=== PATIENT | female | born 1995 | race Caucasian/White ===

== ENCOUNTER 2018-10-23 22:00 | Inpatient (IN) ==
--- NOTE | 2018-10-23 23:10 | OB/GYN History & Physical ---
Date of Encounter: 10/23/18 Time of Encounter: 23:07 Assessment and Plan (1) 39 weeks gestation of Current visit: Yes Status: Acute Admit for IOL. Plan for cytotec. PCN for GBS ppx. Epidural if requested. Anticipate . (2) Obesity complicating in third trimester Current visit: Yes Status: Acute (3) Noncompliance Current visit: Yes Status: Acute History of Present Illness Chief complaint: IOL HPI: Ms. Verde is a 22 year old female presenting at 39w2d for IOL due to obesity and noncompliance with care. She has had 3 visits with the onset of care at 30 weeks. A positive Rubella immune Serologies negative A1C WNL, no glucola GBS positive Past Med Surg Social Fam HX - Past Medical History Source: patient Medical history: no medical history - Past Surgical History Surgical History: no surgical history - Social History Smoking Status: Never smoker Alcohol use: none Drug use: none Current living situation: Home - Independent Obstetrical History - Pregnancies : 1 Review of System OB All systems PM: reviewed and no additional remarkable complaints except as stated Exam - Constitutional Constitutional: no acute distress, obese - HEENT HEENT: Mucus Membranes Moist - Lungs Respiratory exam: CTAB - Cardiovascular Cardiovascular exam: RRR - Abdomen Abdomen: Present: gravid, non tender - Extremities Extremities exam: pedal edema (mild bilaterally, bug bites noted over entire body) - Vulva Vulva: bilateral: normal - Vagina Vagina: Present: normal moisture - Cervix Dilation: 3 (at last PN visit) - Anus/Rectum Anus/Rectum: Present: normal perianal skin Results All other labs normal.
[2018-10-23] MEDS ORDERED: Naloxone 0.4 MG/ML INJ IVP PRN (23:13)
[2018-10-23] MEDS ORDERED: *HR* Nalbuphine 10 MG/ML AMPUL IVP PRN (23:13)
[2018-10-23] MEDS ORDERED: Penicillin G Potassium 5,000,000 UNIT in 0.9 % Sodium Chloride Mini Bag 100 ML IVPB ONE (23:13)
[2018-10-23] MEDS ORDERED: Famotidine 20 MG/2 ML VIAL IVP PRN (23:13)
[2018-10-23] MEDS ORDERED: Ondansetron 4 MG/2 ML VIAL IVP PRN (23:13)
[2018-10-23] MEDS ORDERED: Metoclopramide 10 MG/2 ML VIAL IVP PRN (23:13)
[2018-10-23] MEDS ORDERED: Oxytocin 20 units/ LR 1000 mL 20 UNIT/1,000 ML BAG IVC SCH (23:15)
[2018-10-23] MEDS: miSOPROStol 25 MCG TABLET PO PRN (23:39)
[2018-10-23] MEDS: Ringers Solution, Lactated 1,000 ML IVC SCH (23:40)
[2018-10-23 23:47] LABS: Amphetamine Screen,Urine Negative ng/mL (Cutoff=1000); Barbiturate Screen,Urine Negative ng/mL (Cutoff=200); Benzodiazepines Screen,Urine Negative ng/mL (Cutoff=200); Cannabinoid Screen,Urine Negative ng/mL (Cutoff = 50); Cocaine Screen,Urine Negative ng/mL (Cutoff= 300); Opiate Screen,Urine Negative ng/mL (Cutoff=300); Phencyclidine Screen,Urine Negative ng/mL (Cutoff=25)
[2018-10-23 23:57] LABS: Basophils % 0.3 %; Eosinophils % 0.4 %; Hematocrit 30.4 % (35.3-44.9); Immature Granulocytes % 0.3 % (0-4); Lymphocytes # 2.1 K/mcL (0.6-4.6); Lymphocytes % 21.6 %; Mean Corpuscular HGB Conc 32.9 g/dL (31.6-35.5); Mean Corpuscular Hemoglobin 28.2 pg (28.0-33.3); Mean Corpuscular Volume 85.6 fL (83.0-100.0); Mean Platelet Volume 10.4 fL (9.4-12.4); Monocytes # 0.8 K/mcL (0.0-1.3); Monocytes % 7.9 %; Neutrophils # 6.8 K/mcL (1.6-8.9); Platelet Count 269 K/mcL (140-400); Red Blood Count 3.55 M/mcL (3.82-4.97); Red Cell Distribution Width 12.9 % (11.5-14.5); Segmented Neutrophils % 69.5 %; White Blood Count 9.7 K/mcL (4.3-11.1)
[2018-10-24] MEDS: Penicillin G Potassium 2,500,000 UNIT in 0.9 % Sodium Chloride 100 ML IVPB SCH ×5 (03:53→20:16)
[2018-10-24] MEDS: miSOPROStol 25 MCG TABLET PO PRN (04:18)
--- NOTE | 2018-10-24 07:12 | OB Labor Progress Note ---
Date of Encounter: 10/24/18 Time of Encounter: 07:10 Labor Progress Note - Subjective Subjective: Pt reports some pressure but no significant pain. - Vital Signs Vital Signs: VSS - Heart Tones Heart Tones: Category I - Sonterra Sonterra: irregular - Plan Plan: Plan to begin pitocin around 0800. AROM when able. Anticipate .
--- NOTE | 2018-10-24 10:21 | OB Labor Progress Note ---
Date of Encounter: 10/24/18 Time of Encounter: 10:14 Labor Progress Note - Subjective Subjective: Patient feels comfortable with contractions-states she feels just bit of tightening and no real pain or pressure - Cervix Cervix: 6-7/70/-1 - Heart Tones Heart Tones: Baseline 120 Moderate variability Accelerations present 15 x 15 No decelerations FHR category I - Nicolaus Nicolaus: Contractions every 3 minutes and palpate mild - Interventions Interventions: SVE AROM for small amount of clear fluid - Plan Physician notified: No Plan: Continue induction management Increase Pitocin per policy Frequent position changes and movement recommended Anticipate vaginal delivery
[2018-10-24] MEDS: Epidural Premix (fent/bupiv) 110 ML EP SCH ×2 (11:35→18:42)
[2018-10-24] MEDS: Ringers Solution, Lactated 1,000 ML IVC SCH ×2 (12:12→20:17)
--- NOTE | 2018-10-24 13:06 | Anesthesia Evaluation PreOp ---
Date of Encounter: 10/24/18 Time of Encounter: 11:20 - Past History Planned Operation: NOVA Cardiac History: Denies any Significant Hx Pulmonary History: Denies Any Significant HX DEPLOYMENT SPECIALIST History: Denies Any Significant HX Other Medical History: Denies Any Significant HX Anesthesia History: No Prior Anesthetic Complications : Yes Test: Positive Alcohol Use: none Drug use: none Medications and Allergies Ferrous Sulfate [Iron] 1 tab PO DAILY 10/23/18 [History] Pnv No.95/Ferrous Fum/Folic AC [ Caplet] 1 tab PO DAILY 10/23/18 [History] Allergy/AdvReac Type Severity Reaction Status Date / Time No Known Allergies Allergy Verified 10/23/18 23:32 - Meds/Allergy Pre-op Review Medications Reviewed: Yes Allergies Reviewed: Yes Beta Blockers on Current Med List: No Anesthesia Results - Labs 10/23/18 23:20 Anesthesia Exam - HEENT Pupil (Motor): Pupils equal Mallampati: II Teeth: Normal Oral Opening: Greater than 3 - DEPLOYMENT SPECIALIST LOC: Oriented DEPLOYMENT SPECIALIST Motor: Normal RUE, Normal LUE, Normal RLE, Normal LLE, Normal Face DEPLOYMENT SPECIALIST Sensory: Normal: RUE, LUE, RLE, LLE, Face - Cardiac Rhythm: Regular Murmur: None JVD: No Carotid Bruit: No - Pulmonary Breath Sounds: bilateral Clear Respiratory Effort: Symmetrical Anesthesia Assess/Plan ASA Score: 1 Level of consciousness: Cooperative Anesthetic Plan: Epidural
--- NOTE | 2018-10-24 13:09 | Anesthesia Procedures ---
Date of Encounter: 10/24/18 Time of Encounter: 11:25 Procedures: Anesthesia - Epidural/Spinal Patient ID/Chart reviewed: Yes Patient examined: Yes OB Eval: Gestational age: 39.3 OB Eval: : 1 OB Eval: Hx Para: 0 OB Eval: Dilated at (cm): 7 OB Eval: Contractions: Non-stressed pattern Consent Obtained: Yes Site Prep: Aseptic Technique, Sterile prep and drape, Povidone-Iodine 1% Patient position: upright Amount of Local Anesthetic used: 3 Touhy Needle Gauge: 18 Touhy Needle Depth (cm): 5 Catheter Depth at Skin (cm): 8 Test Dose (1.5% Lido + Epi): Volume given (mls): 3 Test Dose Result: Negative Loading Dose Administered: Thru Catheter Infusion Rate (mls/hr): [address]: Tegaderm, Tape Interspace Used: L4-L5 Loss of Resistance (VIKTORIYA): Yes Blood: No CSF: Yes (purposeful 25g dura puncture sprotte) Paresthesia: No Spinal Needle Gauge: 25 Vitals + FHT's: stable throughout see nursing notes
--- NOTE | 2018-10-24 14:21 | OB Labor Progress Note ---
Date of Encounter: 10/24/18 Time of Encounter: 14:18 Labor Progress Note - Subjective Subjective: Pt comfortable with epidural - Cervix Cervix: 8/100/-1 - Heart Tones Heart Tones: Baseline 120 Moderate variability Accelerations present 15x15 No decelerations FHR Category I - Mona Mona: Contractions every 2-4 minutes and palpate moderate - Interventions Interventions: SVE Peanut ball IUPC - Plan Physician notified: No Plan: Continue induction management Frequent position changes with peanut ball Anticipate
--- NOTE | 2018-10-24 18:01 | OB Labor Progress Note ---
Date of Encounter: 10/24/18 Time of Encounter: 17:59 Labor Progress Note - Subjective Subjective: Pt comfortable with epidural - Cervix Cervix: 8/100/-1 - Heart Tones Heart Tones: Baseline 120 Accelerations present Early decelerations Moderate variability FHR Category I - La Sal La Sal: Contractions every 4-5 minutes with IUPC MVUs 220+ - Interventions Interventions: Cat/cow movement on hands and knees x 30+ minutes Walcher's x 4 contractions - Plan Physician notified: No Plan: Continue induction management Frequent position changes with peanut ball Discussion with patient regarding station had and pt aware this is a p ossibility Anticipate
[2018-10-24] MEDS ORDERED: Ropivacaine /PF 1% 100 MG/10 ML VIAL ONE (20:16)
--- NOTE | 2018-10-25 00:58 | OB/GYN Procedure Note ---
Delivery - Delivery Date: 10/25/18 Provider: Savannah Stratton (Dr. Riddle called in for vaccuum assist) Intrapartum events: prolonged labor- > = 20hr Delivery induction: bobo, misoprostol Delivery augmentation: rupture of membranes, pitocin Delivery monitor: external FHT, external uterine, internal FHT, internal uterine Anesthesia: epidural Quantitated Blood Loss: 200 - (s) Infant A Infant Delivery Date: 10/25/18 Infant Delivery Time: 00:26 Presentation: vertex Position: OA Route of delivery: Gender: Male Viability: Viable Pounds: 8 Ounces: 13 Weight Gram: 3.985 kg at 1 minute: 2 at 5 mins: 8 Shoulder Dystocia: encountered Shoulder Dystocia Maneuvers: Maria Eugenia maneuver, suprapubic pressure Shoulder dystocia time elapsed: 30 seconds Specimens collected: cord blood Placenta: spontaneous Cord: nuchal cord (around body), 3 umbilical vessels, delivered through nuchal - Repair Episiotomy: none Laceration Description: Periurethral (bilateral hemostatic), Labial (bilateral - right repaired and left hemostatic) - Complications Delivery complications: none Delivery comments: This is a 22 year old G1 now P1001 who was admitted for induction of labor. She progressed with Bobo balloon and misoprostol induction followed by AROM and Pitocin for augmentation to the second stage of labor. She pushed for [address] Riddle was artery at the bedside in anticipation of a large . Due to bradycardia sustained in between contractions patient was consented and agreed to have a vacuum placed on the head by Dr. Riddle. One pull was made to deliver the head with no pop offs and she delivered a viable, male infant, "Perseus", direct OA, over an intact perineum. A nuchal cord was identified. The cord was loosely wrapped around the body and thus delivered through. A shoulder dystocia was encountered. The clock was marked and I asked for Maria Eugenia and suprapubic pressure. The shoulder released and the rest of the delivered easily. Total shoulder dystocia time was 30 seconds. The infant was placed on the maternal abdomen but was making no respiratory effort and had a very weak cry. The cord was clamped and cut at just before 30 seconds of life and the was handed off to Marlon Moffett RN to be taken to the warmer where nursery team was waiting. scores were 2 at 1 minute and 8 at 5 minutes. The weighed 8 lbs. 13 oz. (3985 g). The placenta delivered spontaneously, intact with a 3-vessel cord. Inspection revealed bilateral periurethral lacerations that were hemostatic and bilateral labial lacerations. The right labial laceration was repaired with a 3-0 Monocryl suture and the left labial laceration was left unrepaired as it was hemostatic. The uterus was firm with no active bleeding. EBL was 200 mL. Placenta and umbilical artery blood gases were not sent. Mom and baby are skin to skin following infant resuscitation. - Disposition Mom disposition: stable in LDR [place] disposition: stable in LDR
[2018-10-25] MEDS ORDERED: Acetaminophen 325 MG TABLET PO PRN (02:37)
[2018-10-25] MEDS ORDERED: Benzocaine/Menthol 56 GM AEROSOL SPRAY TP PRN (02:37)
[2018-10-25] MEDS ORDERED: Oxytocin 20 units/ LR 1000 mL 20 UNIT/1,000 ML BAG IVC SCH (02:37)
[2018-10-25] MEDS: Ibuprofen 600 MG TABLET PO PRN ×2 (04:05→19:03)
[2018-10-25] MEDS: Prenatal Vit/FA 1 EACH TABLET PO SCH (08:38)
[2018-10-26 07:39] VITALS: BP 128/93
[2018-10-26] MEDS: Prenatal Vit/FA 1 EACH TABLET PO SCH (08:04)
[2018-10-26] MEDS: Ibuprofen 600 MG TABLET PO PRN (08:04)
--- NOTE | 2018-10-26 08:37 | OB/GYN Progress Note ---
Date of Encounter: 10/26/18 Time of Encounter: 08:35 Objective - Latest Vital Signs Latest vital signs: Vital Signs Temp Pulse Resp BP Pulse Ox 10/26/18 07:38 98.3 F 74 16 128/93 99 10/25/18 20:32 98.3 F 80 16 123/83 98 10/25/18 15:44 98.3 F 79 16 117/77 Intake and Output 10/25/18 10/26/18 10/26/18 23:59 07:59 15:59 Intake Total 400 / 1960 Output Total 300 / 300 Balance 400 / 710 -300 / -300 Intake: Oral 400 / 1960 Output: Urine 300 / 300 Other: Meal Dinner Percent of Meal Consumed 100% Stool Size Moderate Stool Characteristics Normal for Patient # Voids 2
--- NOTE | 2018-10-26 08:57 | Discharge Summary ---
Date of Encounter: 10/26/18 Time of Encounter: 08:55 - Discharge Diagnosis (1) Vaginal delivery Priority: Primary Status: Acute Comments: Vacuum assisted delivery Doing well day one , desires to be discharged home. Pain controlled with pain medications ordered, voiding without difficulty, + bowel movement. Follow up in 4 weeks for routine visit. (2) Obstetric labial laceration, delivered, current hospitalization Priority: Secondary Status: Acute Comments: Motrin and dermoplast as needed for discomfort. - Discharge Medications Prescriptions: New Ibuprofen [Ibu] 600 mg PO Q6H PRN 10 Days #40 tablet PRN Reason: Pain No Action Ferrous Sulfate [Iron] 1 tab PO DAILY Pnv No.95/Ferrous Fum/Folic AC [ Caplet] 1 tab PO DAILY Home Medications: Ferrous Sulfate [Iron] 1 tab PO DAILY 10/23/18 [History] Pnv No.95/Ferrous Fum/Folic AC [ Caplet] 1 tab PO DAILY 10/23/18 [History] Ibuprofen [Ibu] 600 mg PO Q6H PRN 10 Days #40 tablet 10/26/18 [Rx] Allergies/Adverse Reactions: Allergy/AdvReac Type Severity Reaction Status Date / Time No Known Allergies Allergy Verified 10/23/18 23:32 Data Procedures and tests throughout hospitalization: Laboratory Tests 10/23/18 10/23/18 23:20 23:20 WBC 9.7 RBC 3.55 L Hgb 10.0 L Hct 30.4 L MCV 85.6 MCH 28.2 MCHC 32.9 RDW 12.9 Plt Count 269 MPV 10.4 Immature Gran % 0.3 Seg Neutrophils % 69.5 Lymphocytes % 21.6 Monocytes % 7.9 Eosinophils % 0.4 Basophils % 0.3 Neutrophils # 6.8 Lymphocytes # 2.1 Monocytes # 0.8 Eosinophils # 0.0 Basophils # 0.0 Urine Opiates Screen Negative Ur Buprenorphine Scrn Negative Ur Barbiturates Screen Negative Ur Phencyclidine Scrn Negative Ur Amphetamines Screen Negative U Benzodiazepines Scrn Negative Urine Cocaine Screen Negative U Marijuana (THC) Screen Negative Ur Drug Screen Interp See Below Date of admission: 10/23/18 23:00 Consults: 10/23/18 23:15 Consult to Machine Shop Helper (W&C) [CONS] Routine Reason For Exam: Reason for SW Consult: limited care, transportation 10/25/18 02:37 Consult to Independent Film Maker [CONS] Routine Comment: Vaginal delivery, consult needed Discharging clinician: Glory Jean Baptiste Anticipated date of discharge: 10/26/18 - Patient Status Disposition: Home, Self-Care Condition: Good Functional capacity at discharge: independent ambulation Overall status at discharge: patient is back to baseline - Discharge Instructions Instructions: Vaginal Delivery (DC) Follow Up With: Brandon Riddle MD [Partnered Physician] - Additional Instructions: Follow-up with Dr. Riddle's Office in 4 weeks. No tampons, douching, vaginal intercourse until cleared by your transportation maintenance worker. [facility] office or go to the ER if you experience any concerning symptoms, including sudden onset of weakness, confusion, or vaginal bleeding, passing clots larger than a golf ball, new or foul-smelling vaginal discharge, suicidal thoughts, or any other symptoms you find concerning. - Diet and Activity Activity: increase activity as tolerated Diet: advance to your usual diet Hospital Course Reason for admission: induction of labor Delivery: , vacuum extraction Episiotomy: none Laceration: 1st degree Other procedures: none complications: none Discharge diagnosis: IUP at term delivered [place] baby: male Time Attestation: Total time spent providing and/or coordinating discharge services: Time Spent: Less than 30 minutes Exam - Constitutional Vitals: Temp Pulse Resp BP Pulse Ox 98.3 F 74 16 128/93 99 10/26/18 07:38 10/26/18 07:38 10/26/18 07:38 10/26/18 07:38 10/26/18 07:38 General appearance IM: A&O X 3, obese, answers questions appropriately - Respiratory Respiratory exam: Present: CTAB. Absent: rales, respiratory distress, rhonchi, stridor, wheezes - Cardiovascular Cardiovascular exam IM: Present: RRR, +S1, +S2 - GI/Abdominal GI/Abdominal exam IM: normal bowel sounds Additional comments: Obese, nondistended, nontender abdomen - Rectal Rectal exam: deferred - Uterine Tone: Firm Uterus Position: 1 Finger Below Umbilicus - Extremities Exam Extremities exam IM: Present: full ROM, normal inspection. Absent: calf tenderness, cyanotic, pedal edema - Neurological Exam Neurological exam: alert, CN II-XII intact, oriented X3, no focal deficits
== END 2018-10-26 14:36 | disposition home or self-care (01) | DRG 560 ==
LOC: 1NENULAB 23:00 → 1NENUOBS 10-25 02:33
PROVIDERS: ADMIT Registered Nurse; ATTEND Registered Nurse